=== PATIENT | male | born 1975 | race Caucasian/White ===

== ENCOUNTER 2023-03-29 09:13 | Emergency (ER) | payer OTHER, SELFPAY ==
--- NOTE | ~2023-03-29 | CT_ITS ---
Non-contrast Head CT History: Head trauma Technique: Axial non-contrast imaging of the brain was performed. Dose reduction technique was used on this scan by utilizing automated exposure control and iterative reconstruction technique. The dose -length product (DLP) was 605.33 mGy-cm. Findings: There is no evidence of intracranial hemorrhage, mass lesion, or acute infarct. Brain par enchyma appears normal. The ventricles and subarachnoid spaces are normal in size. The calvarium ap pears normal. There is mild bilateral ethmoid sinus disease. The remaining visualized paranasal sinus es and mastoid air cells are clear. Impression: No intracranial abnormality seen. Ethmoid sinus disease. Reviewed, dictated and finalized at [facility]. Impression: No intracranial abnormality seen. Ethmoid sinus disease.
--- NOTE | ~2023-03-29 | CT_ITS ---
Noncontrast CT scan of the cervical spine Technique: Multiple contiguous axial [address] images of the cervical spine were obtained and rec onstructed in 2D sagittal and coronal planes on the acquisition scanner. Dose reduction technique was used on this scan by utilizing automated exposure control, adjustment of the mA and/or kV according to patient size. Clinical History: Pain Findings: No fractures or dislocations. Unremarkable visualized bony structures. The intervertebral disc spaces are preserved. No prevertebral soft tissue swelling. Impression: No fracture or subluxation of the cervical spine. Reviewed, dictated and finalized at [facility]. Impression: No fracture or subluxation of the cervical spine.
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
[2023-03-29 09:15] VITALS: BP 144/80; PULSE 75; RESP 15; O2SAT 99
[2023-03-29] MEDS: HYDROmorphone HCL INJ (*CRX) 1 MG/ML SYR IV PUSH (09:36)
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
[2023-03-29 09:48] LABS: Basophils Absolute Auto 0.1 K/mm3 (0.0-0.1); Eosinophils Absolute Auto 0.2 K/mm3 (0-0.3); Eosinophils Percent Auto 2.5 % (0-4.4); Hematocrit 44.7 % (42.0-52.0); Hemoglobin 14.7 g/dL (14.0-18.0); Immature Granulocyte Absolute 0.02 K/mm3 (0.00-0.031); Immature Granulocyte Percent A 0.2 % (0-0.5); Lymphocytes Absolute Auto 2.25 K/mm3 (0.9-3.2); Lymphocytes Percent Auto 28.1 % (18.3-44.2); Mean Corpuscular HGB Conc 32.9 g/dl (32-36); Mean Corpuscular Volume 94.3 fl (80-100); Mean Platelet Volume 9.6 fl (7.4-10.4); Monocytes Absolute Auto 0.6 K/mm3 (0.1-0.6); Monocytes Percent Auto 7.9 % (2.6-8.5); Neutrophils Absolute Auto 4.8 K/mm3 (1.3-6.7); Neutrophils Percent Auto 60.3 % (45.5-73.1); Platelet Count Result 363 k/mm3 (150-375); Red Blood Count 4.74 M/mm3 (4.6-6.20); Red Cell Distribution Width 13.2 % (11.5-14.5)
[2023-03-29 09:49] LABS: Estimated CRCL calculation 88 ml/min; Estimated Glomerular Filt Rate > 60
[2023-03-29 09:58] LABS: INR 0.9; Prothrombin Time 12.5 Seconds (11.1-14.7)
[2023-03-29 09:59] LABS: Partial Thromboplastin Time 25.1 SECONDS (22.3-36.8)
[2023-03-29 10:01] LABS: Alanine Aminotransferase 31 U/L (6-50); Albumin Level 4.2 g/dL (3.5-5.1); Alkaline Phosphatase 98 U/L (38-126); Anion Gap 4 mmol/L (8-16); Aspartate Amino Transferase 35 U/L (17-59); Bilirubin,Total 0.7 mg/dL (0.2-1.3); Blood Urea Nitrogen 11 mg/dL (9-20); Calcium 8.7 mg/dL (8.4-10.2); Carbon Dioxide 30 mmol/L (22-30); Chloride 102 mmol/L (98-107); Estimated CRCL calculation 88 ml/min; Estimated Glomerular Filt Rate > 60; Glucose 109 mg/dL (65-110); Potassium 4.5 mmol/L (3.4-5.0); Sodium 136 mmol/L (137-145)
[2023-03-29 10:19] VITALS: BP 128/83; PULSE 68; RESP 16; O2SAT 100
[2023-03-29 10:52] LABS: Appearance Urine Clear (Clear); Bacteria Urine None Seen /hpf; Bilirubin Urine Negative (Negative); Color Urine Yellow (Yellow); Glucose Urine UA Negative (Negative); Ketones Urine Negative (Negative); Leukocyte Esterase Ur Negative LEU/UL (Negative); Need Manual Microscopic Reviewed; Nitrate Urine Negative (Negative); Protein Urine Trace mg/dL (Negative); Squamous Epithelial Cell Urine None seen /hpf (Few); pH Urine 7.5 (5.0-9.0)
[2023-03-29 10:53] LABS: Add Urine Microscopic? YES; Specific Grav Ur 1.046 (1.001-1.035)
[2023-03-29 11:04] VITALS: BP 123/77; PULSE 79; RESP 20; O2SAT 100
== END 2023-03-29 11:06 | disposition home or self-care (01) ==
PROVIDERS: Emergency Provider Emergency Medicine; PCP Emergency Medicine
DX: S22.32XA Fracture of one rib, left side, initial encounter for closed fracture (principal); J32.2 Chronic ethmoidal sinusitis; T79.7XXA Traumatic subcutaneous emphysema, initial encounter; V86.55XA Driver of 3- or 4- wheeled all-terrain vehicle (ATV) injured in nontraffic accident, initial encounter
CPT/HCPCS: 36415; 70450; 71260; 72125; 74177; 80053; 81001; 85025; 85610; 85730; 87086; 96374; 99284; J1170; Q9967